=== PATIENT | female | born 1995 | race Two or more races ===

== ENCOUNTER 2017-11-28 10:06 | Emergency (ER) | payer SELFPAY ==
[2017-11-28] MEDS ORDERED: Ondansetron INJ* 2 MG/ML VIAL IV ONE (10:15)
[2017-11-28] MEDS ORDERED: NS 0.9% 1000 ML* 1,000 ML IV ONE (10:15)
[2017-11-28 10:54] LABS: EGFR Non-African American 85.2 (>60)
[2017-11-28 11:19] LABS: Urine Color Red
--- NOTE | 2017-11-28 11:19 | ED ---
Complex/Multi-Sys Presentation - HPI Summary HPI Summary: Patient is a 22 y/o F w/ c/o N/V/D. Triage notes states, onset on 11/24 of diarrhea ,has fever ,cholls headache and sweats.has aslo been vomiting ststes she cant keep anything down. In room, patient also reports intermittent abdominal and chest pain in the room. On triage, Sx severity is 7/10, nothing is noted to aggravate/alleviate Sx, and reports no treatment prior to arrival in ED. Patient states she has had 5-6 episodes of diarrhea and cannot keep down water. She notes she has been having chills, fever and shaking as well. Patient has not been outside recently. She states that some people at her work have been sick. She also reports a lump in her left lemons that has been gradually travelling upwards. Patient reports father has prostate cancer, and mother has diabetes. She states she smokes, drinks occasionally, and does not use drugs. - History Of Current Complaint Chief Complaint: EDNauseaVomitDiarrh Time Seen by Provider: 11/28/17 10:24 Hx Obtained From: Patient Onset/Duration: Lasting Days - onset four days ago, Still Present Timing: Constant Severity Initially: Severe - 7/10 Aggravating Factor(s): nothing Alleviating Factor(s): nothing Associated Signs And Symptoms: Positive: Headache, Chest Pain, Nausea, Vomiting , Diarrhea, Abdominal Pain, Fever, Diaphoresis, Other - chills, tremors, lump in left lemnos - Allergies/Home Medications Allergies/Adverse Reactions: Allergies Allergy/AdvReac Type Severity Reaction Status Date / Time No Known Allergies Allergy Verified 11/28/17 10:13 Home Medications: Home Medications Montelukast Sodium TAB* [Singulair 10 MG TAB*] 10 mg PO DAILY 11/28/17 [History Confirmed 11/28/17] PMH/Surg Hx/FS Hx/Imm Hx Respiratory History: Reports: Hx Asthma GI History: Reports: Other GI Disorders - Gastritis Infectious Disease History: No Infectious Disease History: Denies: Traveled Outside the [place] in Last 30 Days - Family History Known Family History: Positive: Hypertension, Diabetes, Other - hypotension ( father), cancer - Social History Alcohol Use: Occasionally Hx Substance Use: No Substance Use Type: Reports: None Hx Tobacco Use: Yes Smoking Status (MU): Light Every Day Tobacco Smoker Review of Systems Positive: Fever, Chills, Skin Diaphoresis, Other - tremors Positive: Chest Pain Positive: Abdominal Pain, Vomiting, Diarrhea, Nausea Positive: Other - lump in left lemons Positive: Headache All Other Systems Reviewed And Are Negative: Yes Physical Exam - Summary Physical Exam Summary: Appearance: Well appearing, no pain distress Skin: warm, dry, reflects adequate perfusion; subcutaneous nodule on left lemons Head/face: normal Eyes: EOMI, ISABELLE ENT: normal Neck: supple, non-tender Respiratory: CTA, breath sounds present Cardiovascular: RRR, pulses symmetrical Abdomen: non-tender, soft Bowel Sounds: present Musculoskeletal: normal, strength/ROM intact Neuro: normal, sensory motor intact, A&Ox3 Triage Information Reviewed: Yes Vital Signs On Initial Exam: Initial Vitals Temp Pulse Resp BP Pulse Ox 97.2 F 73 18 138/77 100 11/28/17 10:09 11/28/17 10:09 11/28/17 10:09 11/28/17 10:09 11/28/17 10:09 Vital Signs Reviewed: Yes Diagnostics - Vital Signs Vital Signs Temp Pulse Resp BP Pulse Ox 11/28/17 10:41 68 127/83 100 11/28/17 10:20 70 131/108 100 11/28/17 10:09 97.2 F 73 18 138/77 100 - Laboratory Lab Results: Lab Results 11/28/17 11/28/17 Range/Units 10:29 10:29 Sodium 134 L (135-145) mmol/L Potassium 3.8 (3.5-5.0) mmol/L Chloride 105 (101-111) mmol/L Carbon Dioxide 23 (22-32) mmol/L Anion Gap 6 (2-11) mmol/L BUN 13 (6-24) mg/dL Creatinine 0.83 (0.51-0.95) mg/dL Est GFR ( Amer) 103.1 (>60) Est GFR (Non-Af Amer) 85.2 (>60) BUN/Creatinine Ratio 15.7 (8-20) Glucose 83 (70-100) mg/dL Lactic Acid 0.6 (0.5-2.0) mmol/L Calcium 9.1 (8.6-10.3) mg/dL Total Bilirubin 0.90 (0.2-1.0) mg/dL AST 23 (13-39) U/L ALT 14 (7-52) U/L Alkaline Phosphatase 73 (34-104) U/L C-Reactive Protein 1.49 (<8.01) mg/L Total Protein 7.5 (6.4-8.9) g/dL Albumin 4.5 (3.2-5.2) g/dL Globulin 3.0 (2-4) g/dL Albumin/Globulin Ratio 1.5 (1-3) Lipase < 10 L (11.0-82.0) U/L Beta HCG, Quant < 0.60 mIU/mL Result Diagrams: 11/28/17 10:29 11/28/17 10:29 Lab Statement: Any lab studies that have been ordered have been reviewed, and results considered in the medical decision making process. Re-Evaluation - Re-Evaluation First Eval Re-Evaluation Time: 11:27 Change: Improved Comment: Patient states that she is feeling better, just a little cold after IV fluids. Discussed results of labs and tests with patient. Patient will be discharged to home. She is agreeable with this plan. Complex Multi-Symp Course/Dx Course Of Treatment: Patient presents with nausea, vomiting, watery loose stools. No known sick contacts or travel outside the area. Has not recently been camping. No fever here. Hydrated and treated for nausea with relief. Laboratories unremarkable. Referral to provide care physician and [facility] given. Treat symptomatically for likely viral cause. - Diagnoses Differential Diagnoses/HQI/PQRI: Metabolic Abnormality, Sepsis, Other - Gastroenteritis-viral versus bacterial Provider Diagnoses: Gastroenteritis Discharge - Sign-Out/Discharge Documenting (check all that apply): Patient Departure - discharge - Discharge Plan Condition: Improved Disposition: HOME Prescriptions: Hyoscyamine Sulfate [Levsin/Sl] 0.125 mg SL Q4H PRN #30 sub PRN Reason: cramping Ondansetron [Zofran Odt] 4 mg PO Q8H PRN #12 tab.rapdis PRN Reason: Nausea Patient Education Materials: Gastroenteritis (ED) Forms: *Work Release Referrals: [facility] [Outside] [facility] [place]Outside] Additional Instructions: Drink plenty of fluids. Propel water or Gatorade G2 may help. Return with high fever, unable to keep down fluids, worse, new symptoms or other concerns as discussed. - Billing Disposition and Condition Condition: IMPROVED Disposition: Home - Attestation Statements Document Initiated by Barryibcameron: Yes Documenting Scribe: Nikunj Unger Provider For Whom Hector is Documenting (Include Credential): Angel Mosley MD Scribe Attestation: INikunj, scribed for Angel Mosley MD on 11/28/17 at 1235. Scribe Documentation Reviewed: Yes Provider Attestation: The documentation as recorded by the Nikunj hemphill accurately reflects the service I personally performed and the decisions made by me, Angel Mosley MD
[2017-11-28 11:20] LABS: Urine Appearance Cloudy; Urine Blood 3+ (Negative); Urine Ketones 1+ (Negative); Urine Protein 2+(100 mg/dL) (Negative); Urine Red Blood Cell 3+(>10/hpf) (Absent); Urine Specific Gravity 1.023 (1.010-1.030); Urine Urobilinogen Negative (Negative); Urine White Blood Cell 1+(6-10/hpf) (Absent)
[2017-11-28 11:26] LABS: ABS Basophils 0.1 10^3/ul (0-0.2); ABS Eosinophils 0.3 10^3/ul (0-0.6); ABS Lymphocytes 2.1 10^3/ul (1.0-4.8); ABS Neutrophils 4.4 10^3/ul (1.5-7.7); ABS Nucleated RBC 0 10^3/ul; Eosinophil % 3.2 % (0-6); Hematocrit 44 % (35-47); Hemoglobin 14.8 g/dl (12.0-16.0); Lymphocyte % 26.7 % (25-47); Mean Corpuscular HGB Conc 34 g/dl (31-36); Mean Corpuscular Hemoglobin 30 pg (27-31); Mean Corpuscular Volume 90 fL (80-97); Mean Platelet Volume 8.2 um3 (7.4-10.4); Nucleated Red Blood Cells % 0.1; Platelet Count 232 10^3/ul (150-450); Red Blood Count 4.89 10^6/ul (4.00-5.40); Red Cell Distribution Width 14 % (10.5-15); White Blood Count 7.8 10^3/ul (3.5-10.8)
[2017-11-28] MEDS ORDERED: Famotidine TAB* 20 MG PO ONE (11:35)
[2017-11-28 11:50] VITALS: BP 117/82
== END 2017-11-28 11:48 | disposition home or self-care (01) ==
LOC: ED 10:06
DX: K52.9 Noninfective gastroenteritis and colitis, unspecified (principal); R51 Headache; R07.9 Chest pain, unspecified; R11.2 Nausea with vomiting, unspecified; R19.7 Diarrhea, unspecified; R50.9 Fever, unspecified; R10.9 Unspecified abdominal pain; F17.210 Nicotine dependence, cigarettes, uncomplicated
CPT/HCPCS: 36415; 80053; 81003; 81015; 83605; 83690; 84702; 85025; 86140; 87086; 96374; 96375; 99283; A9270-GY; J2405